=== PATIENT | male | born 1960 | race Caucasian/White ===

== ENCOUNTER 2018-01-02 05:51 | Day surgery (SDC) | payer OTHER ==
[~2018-01-02] VITALS: Ht 170.2 cm; Wt 88.5 kg
[2018-01-02] MEDS ORDERED: LISINOPRIL10 MG PO (06:01)
[2018-01-02] MEDS ORDERED: FLOMAX0.4 MG PO (06:01)
--- NOTE | 2018-01-02 07:49 | NUR ---
PT STATES CHEMICAL BURN LEFT LATERAL CALF HAPPENED AT [facility]. NOTIFIED . SILVADENE CREAM APPLIED TO BURNED AREA AND DRESSES WITH GAUZE AND TALISHA WRAP PRIOR TO PROCEDURE BY [email or web address]
--- NOTE | 2018-01-02 09:21 | NUR ---
01/02/18 0921 Letitia Dao 0872 PATIENT ARRIVES TO PACU UNRESPONSIVE TO PAIN OR VERBAL STIMULI. RESP EVEN AND UNLABORED, MASK AT 10 LITERS. 09 PATIENT AWAKENS TO VERBAL STIMUIL. RESP EVEN AND UNLABORED, MASK OFF. PATIENT SATS AT 95 % ON ROOM AIR. 09 PATIENT AWAKE OFF/ON. DESATS TO 88% WHEN SLEEPING, NC AT 2 LITERS APPLIED, SATS 100%. RESP EVEN AND UNLABORED. ICE TO RIGHT KNEE.
--- NOTE | 2018-01-02 10:10 | NUR ---
PT TO FLOOR VIA STRETCHER. NUMB TO T5. DENIES PAIN OR NAUSEA. HOOKED UP TO IVF AND TRANSCEMIC ACID. ICE TO SITE.
--- NOTE | 2018-01-02 11:45 | OR ---
[facility] [address], [place] [address] Signed DATE OF OPERATION: 01/02/2018 SURGEON: Jermain Norwood MD PREOPERATIVE DIAGNOSIS: End-stage osteoarthritis, right knee. POSTOPERATIVE DIAGNOSIS: End-stage osteoarthritis, right knee. PROCEDURE: Right total knee arthroplasty. ANESTHESIA: Spinal with sedation. SPECIMENS AND COMPLICATIONS: There were no specimens or complications. TOURNIQUET TIME: About 85 minutes. IMPLANTS: An Attune PS size 7 femur, size 6 tibial tray with a 5 mm PS poly and a 38 mm all-poly patellar button. WHAT WAS DONE: The patient was taken to the operating room. After anesthesia was induced and the patient sedated, the right lower extremity was positioned, prepped and draped in a routine sterile fashion. An anterior approach was made at the knee through skin and subcutaneous tissue. A small medial flap was created and an anteromedial arthrotomy was performed. The patella was then everted about 9 mm was trimmed off the posterior aspect and drill holes were made for 38 mm all-poly patella. Trial patella was snap-fit into place, so we had reconstituted the patient's 24 mm preresection patellar height. The patella was then slid into the lateral recess. Using the [place] navigation system, we digitized the distal femur and then resected the distal femur in neutral varus-valgus about 3 degrees of flexion and removing about 11 mm off the high side, which was the lateral side. The wafers were then removed. We then transitioned the navigation system of the proximal tibia and again following the Rahat protocol, digitized the proximal tibia and then again resected it in about removing about 4 mm off the medial side in Electronically Signed By: JERMAIN NORWOOD MD 01/02/18 1145 PATIENT NAME: CASTRO BAPTISTE OPERATIVE REPORT DATE OF : 60 REPORT #: [id number] PHYSICIAN: JERMAIN NORWOOD MD PCP: GRETCHEN KHAN MD REPORT IS CONFIDENTIAL AND NOT TO BE RELEASED WITHOUT AUTHORIZATION [facility] [address], [place] [address] Signed neutral varus-valgus and about 3 degrees of posterior slope per the Attune surgical protocol. We then removed the tibial wafer along with remnants of the medial and lateral menisci. The femoral sizing block was placed on the distal femur and we sized to a size 7. The 4-in-1 cutting block was placed in 3 degrees of external rotation and anterior, posterior, and chamfer cuts were made. Bony debris was then removed. The notch cutting block was placed and the notch was cut out. We then placed a lamina career based intervention coordinator in the knee joint and removed the remaining portion of the medial and lateral menisci, ACL, PCL and also some very large bony fragments in the posterior aspect of the joint. We then placed the femoral trial on the distal femur. We drilled the lug holes and placed a size 6 tibial tray on the tibia. We placed a 5 mm poly trial and cycled the knee. The knee was extremely snug, enough flexion, and had just a touch of laxity in extension, but easily one into full extension. The trials were then removed. We placed the tibial tray on the proximal tibia prepared with a standard reamer and broach. The knee was copiously irrigated and meticulously dried. We then mixed a double batch of cement and cemented all the components into place and allowed the knee to lie in full extension with a [address]. Once the cement had cured, marginal cementophytes were sought and removed. The knee was again gently irrigated and the final 5 poly was snap-fit to the tibial tray. The knee was then closed in a standard fashion. Sterile dressing applied. The patient was awakened and taken to the recovery room, where he arrived in stable condition. Counts were correct and antibiotic protocols were followed. Jermain Norwood MD WFB/MODL /[id number] Copies: ~ Electronically Signed By: JERMAIN NORWOOD MD 01/02/18 1145 PATIENT NAME: CASTRO BAPTISTE OPERATIVE REPORT DATE OF : 60 REPORT #: [id number] PHYSICIAN: JERMAIN NORWOOD MD PCP: GRETCHEN KHAN MD REPORT IS CONFIDENTIAL AND NOT TO BE RELEASED WITHOUT AUTHORIZATION
--- NOTE | 2018-01-02 12:14 | NUR ---
PT ATE A SMALL PORTION OF LUNCH AND IS NOW SLEEPING. GUARDS STATE THAT HE STARTED SWEATING AFTER EATING A FEW BITES AND DECIDED TO SLEEP.
--- NOTE | 2018-01-02 13:43 | NUR ---
PT ASLEEP UNTIL AWOKEN FOR VS. PT STATES HE CAN FEEL HIS FEET AND IS MOVING. DOES NOT FEEL THE URGE THE VOID YET. SHAHRIAR CONTAINER FILLER. IN ROOM TO ASSESS. PT. GUARDS AT BEDSIDE.
--- NOTE | 2018-01-02 14:32 | NUR ---
PT UP WALKING WITH SERVICE SUPPORT REPRESENTATIVE. GUARDS WITH PT. F
--- NOTE | 2018-01-02 15:26 | NUR ---
PT DENIES URGE TO VOID. STATES HE WILL GET GET UP TO THE RESTROOM WHEN WE WANT HIM TOO AND TRY TO VOID. DENIES PAIN OR NAUSEA.
--- NOTE | 2018-01-02 15:40 | NUR ---
PT SLEEPING UNTIL AWOKEN FOR AB. DENIES PAIN OR CONCERNS ATT. DRESSING CDI.
--- NOTE | 2018-01-02 16:31 | NUR ---
CALLED DR NORWOOD REGARDING INABILITY TO VOID. HE ORDERED FLOMAX, FOY AND CHANGE DRESSING ON BURN. WILL PUT IN ORDERS.
--- NOTE | 2018-01-02 17:15 | NUR ---
PLACED FOY IN PT AND ADMINISTERED MEDICATIONS. PT TOLERATED WELL. NOW SLEEPING WITH KNEE FLAT. GUARDS IN ROOM. ONE HAND NOT SHACKLED SO HE CAN USE WALKER AND DRINK WATER.
--- NOTE | 2018-01-02 18:14 | NUR ---
ADMINISTERED MEDS. PT SITTING UP IN BED EATING DINNER. STATES HE JUST WANTS TO SLEEP. FOY DRAINING LIGHT YELLOW URINE. PT TOLERATING WELL. DRESSING CDI.
--- NOTE | 2018-01-02 18:32 | NUR ---
PT TO FLOOR THIS MORNING NUMB TO T5. CAN NOW WALK AND WORKED WITH PHYS. THER. SEVERAL BOUTS OF NAUSEA, GIVEN ZOFRAN. DENIES PAIN. LAW PLACED AT 1700 FOR RETENTION, REMOVE IN MORNING. HAS BURN ON LEFT CALF FROM INJURY AT FACILITY, COVERED.
--- NOTE | 2018-01-02 18:56 | NUR ---
PATIENT'S CONTINUOUS PULSE OX WAS ALARMING THIS TRANSITIONAL CARE LIAISON ENTERED ROOM. THE PATIENTS O2 SAT'S WERE AT 77%. THIS TRANSITIONAL CARE LIAISON WOKE PATIENT UP TO TAKE DEEP BREATHS PATIENTS SAT'S WENT BACK UP TO 98%. THIS TRANSITIONAL CARE LIAISON PUT PATIENT BACK ON 2L NC DUE TO SAT'S DROPPING WHILE THE PATIENT IS SLEEPING. GUARDS IN ROOM STATED THAT THE CONTINUOUS PULSE OX HAS BEEN ALARMING AND THE GAURDS HAVE BEEN PUSHING THE SILIENCE BUTTON. THIS TRANSITIONAL CARE LIAISON TALKED TO THE GUARDS AND TOLD THEM THAT IT'S NOT OK TO PUSH THE BUTTON AND TO CALL THE NURSE. CHARGE NURSE MINE NOTIFIED AND TALKED TO THE GUARDS.
--- NOTE | 2018-01-02 19:25 | NUR ---
RECEIVED REPORT FROM RN. PATIENT IS RESTING COMFORTABLY IN BED, BREATHING IS EVEN AND UNLABORED. DENIES NEEDS AT THIS TIME. CALL LIGHT WITHIN REACH, SHACKLES IN PLACE, GUARDS AT BEDSIDE.
--- NOTE | 2018-01-02 20:45 | NUR ---
PATIENT RESTING COMFORTABLY IN BED, BREATHING IS EVEN AND UNLABORED. DENIES NEEDS AT THIS TIME. STATES PAIN IS 0/10. ASSESSMENT DONE, SHCEDULED MEDICATIONS GIVEN. PATIENT REFUSING TO TAKE MILK OF MAGNE[place] AT THIS TIME DESPITE EDUCATION. CALL LIGHT WITHIN REACH, SHACKLES IN PLACE, GUARDS AT BEDSIDE.
--- NOTE | 2018-01-02 22:50 | NUR ---
PATIENT RESTING COMFORTABLY IN BED, BREATHING IS EVEN AND UNLABORED. O2 SATURATION IS 93% ON 2L O2 VIA NC. PATIENT REPORTS 0/10 PAIN. DENIES NEEDS AT THIS TIME. CALL LIGHT WITHIN REACH, SHACKLES IN PLACE, GUARDS AT BEDSIDE.
--- NOTE | 2018-01-03 00:11 | NUR ---
PATIENT RESTING COMFORTABLY IN BED, BREATHING IS EVEN AND UNLABORED. O2 SATURATION IS 98% ON 2L O2 WHILE AWAKE. PATIENT TOLERATING JELLO AND CRACKERS WITHOUT NAUSEA/VOMITING. PATIENT REQUESTING MORE JELLO AND CRACKERS. DENIES FURTHER NEEDS. CALL LIGHT WITHIN REACH, [address], GUARDS AT BEDSIDE.
--- NOTE | 2018-01-03 02:45 | NUR ---
PATIENT RESTING COMFORTABLY IN BED, BREATHING IS EVEN AND UNLABORED. REPORTS 0/10 PAIN. SCHEDULED PAIN MEDICATIONS GIVEN. DENIES NEEDS AT THIS TIME. R POINT RESTRAINTS IN PLACE, GUARDS AT BEDSIDE. O2 SATURATION IS 93% ON 2L O2.
--- NOTE | 2018-01-03 04:00 | NUR ---
PATIEN RESTING COMFORTABLY IN BED, BREATHING IS EVEN AND UNLABORED. FLACC SCORE OF 0. O2 SATURATION IS 96% ON 2L O2 VIA NC. PULSE IS 86. R POINT RESTRAINTS NOTED, GUARDS AT BEDSIDE. CALL LIGHT WITHIN REACH.
--- NOTE | 2018-01-03 06:53 | NUR ---
PATIENT RESTING COMFORTABLY IN BED, BREATHING IS EVEN AND UNLABORED. DENIES NEEDS AT THIS TIME. STATES PAIN IS 1/10 IN RIGHT KNEE AFTER DOING DAILY EXERCISES. CALL LIGHT WITHIN REACH. SHACKLES IN PLACE, GUARDS AT BEDSIDE.
--- NOTE | 2018-01-03 07:30 | NUR ---
REPORT RECEIVED FROM KATELYNN WILL. PT AWAKE AND TALKATIVE. HAD LAW REMOVED THIS MORNING WNL. STATES HE SLEPT WELL THROUGHOUT NIGHT.
--- NOTE | 2018-01-03 09:29 | NUR ---
PT'S VS AND I&O'S TAKEN AND DOCUMENTED. PT DISCONNECTED FROM O2 AND PULSE OX PER RN. PT HAS NO NEEDS AT THIS TIME. PT IS GOING TO BE GETTING UP TO GO TO THE BATHROOM WITH GUARDS AND RN.
--- NOTE | 2018-01-03 10:04 | NUR ---
CHANGED DRESSING ON LEFT LOWER LEG. APPEARS TO BE HEALING WELL. SLIGHTLY RED EDGES WITH SCABS FORMING. NO DISCHARGE NOTED. PT DENIES PAIN, JUST SLIGHT DISCOMFORT. GUARDS IN ROOM.
[2018-01-03] MEDS ORDERED: ULTRAM50 MG PO (12:34)
[2018-01-03] MEDS ORDERED: NORCO 10-325 T1 EACH PO (12:36)
[2018-01-03] MEDS ORDERED: XARELTO10 MG PO (12:37)
--- NOTE | 2018-01-03 13:07 | NUR ---
DC VS TAKEN AND DOCUMENTED. DC'D IV PER RN.
== END 2018-01-03 13:10 | disposition home or self-care (01) ==
LOC: DS 05:51 → MS 05:51 → DS 06:45 → MS 09:50 → DS 09:50
PROVIDERS: Orthopaedic Surgery
PROC: 0SRC0J9 Replacement of Right Knee Joint with Synthetic Substitute, Cemented, Open Approach (ICD-10-PCS; principal; 2018-01-02 06:45)
DX: M17.11 Unilateral primary osteoarthritis, right knee (principal); I10 Essential (primary) hypertension; M21.371 Foot drop, right foot; Z79.899 Other long term (current) drug therapy; Z98.890 Other specified postprocedural states
CPT/HCPCS: 01402; 73560; 80048; 85025; 94760; 94762; 97110; 97161; C1713; C1776; G8978; G8979; J0690; J0735; J1100; J1885; J2250; J2274; J2405; J2704; J2765; J3010; J7120